=== PATIENT | male | born 1970 | race Caucasian/White ===

== ENCOUNTER 2017-10-31 08:52 | Emergency (ER) | payer BC ==
[~2017-10-31] VITALS: Ht 182.9 cm; Wt 122.5 kg
[~2017-10-31 08:52] MED LIST: AVAPRO; MECLIZINE 25 MG25 M1 PO; PHENERGAN 25 MG25 M1 PO; PRISTIQ50 MG
[2017-10-31] MEDS ORDERED: CLARITIN10 MG PO (09:01)
[2017-10-31] MEDS ORDERED: VIIBRYD10 MG PO (09:02)
[2017-10-31] MEDS ORDERED: AMBIEN 5 MG TABL5 M1 PO (09:07)
[2017-10-31] MEDS ORDERED: NORVASC10 MG PO (09:07)
[2017-10-31] MEDS ORDERED: WELLBUTRIN SR150 MG PO (09:07)
[2017-10-31 09:17] LABS: ABSOLUTE BASOPHILS 0.1 thou/uL (0.0-0.2); ABSOLUTE EOSINOPHILS 0.2 thou/uL (0.0-0.7); ABSOLUTE LYMPHOCYTES 2.1 thou/uL (0.8-5.3); ABSOLUTE MONOCYTES 0.8 thou/uL (0.0-1.2); ABSOLUTE NEUTROPHILS 3.9 thou/uL (1.6-8.1); BASOPHILS 1.3 %; EOSINOPHILS 2.6 %; HEMATOCRIT 39.9 % (42.0-52.0); HEMOGLOBIN 13.4 gm/dL (14.0-18.0); LYMPHOCYTES 29.6 %; MCH 27.4 pg (26.0-34.0); MCHC 33.5 g/dL (28.0-37.0); MCV 81.9 fL (80.0-100.0); MONOCYTES 11.1 %; MPV 7.4 fl. (7.2-11.1); NUCLEATED RBCS 0 /100WBC; PLATELET COUNT* 282 thou/uL (150-400); POLYS 55.4 %; RBC 4.87 mil/uL (4.50-6.00); RDW-CV 14.8 % (10.5-14.5)
[2017-10-31 09:26] LABS: ANION GAP 5 mmol/L (7-16); BUN 14 mg/dL (7-18); CALCIUM 8.3 mg/dL (8.5-10.1); CHLORIDE 105 mmol/L (98-107); CO2 30 mmol/L (21-32); CREATININE 0.9 mg/dL (0.6-1.3); GLUCOSE 82 mg/dL (70-99); POTASSIUM 3.5 mmol/L (3.5-5.1); SODIUM 140 mmol/L (136-145)
[2017-10-31 09:44] LABS: APTT 27.9 Seconds (25.0-31.3); PROTIME 10.1 Seconds (9.20-11.50)
[2017-10-31 09:46] LABS: ALBUMIN 3.7 g/dL (3.4-5.0); ALKALINE PHOSPHATASE 103 U/L (46-116); CK-MB MASS 2.4 ng/mL (<0.5-3.6); LIPASE 140 U/L (73-393); MAGNESIUM 2.1 mg/dL (1.8-2.4); NT-PRO BRAIN NAT PEPTIDE 18 pg/mL (<300); SGOT 17 U/L (15-37); SGPT 33 U/L (30-65); TOTAL BILIRUBIN 0.3 mg/dL (<0.1-1.0); TROPONIN-I LEVEL <0.06 ng/mL (<0.06)
[2017-10-31 10:08] VITALS: BP 127/74
--- NOTE | 2017-10-31 14:25 | EKG ---
[place] [address] ELECTROCARDIOGRAM REPORT Name: VIVIANA AGUIRRE Room: 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 CABRERA : 1970 Requested By: Alex Ruiz Order Number: [id number] MD: Sebastián Smith Measurements Intervals [place] Rate: 80 P: 16 CO: 142 QRS: 37 QRSD: 114 T: 9 QT: 386 QTc: 446 Interpretive Statements Sinus rhythm Borderline intraventricular conduction delay Compared to ECG 07/12/2012 10:00:10 No significant changes Electronically Signed On 10-31-2017 14:25:22 CDT by Sebastián Smith [email or web address] <ELECTRONICALLY SIGNED> By: Sebastián Smith MD, [facility] 10/31/17 1425 [id number] Sebastián Smith MD, FACC /EPI
== END 2017-10-31 10:10 | disposition home or self-care (01) ==
LOC: M.ERS 08:52
PROVIDERS: Emergency Medicine
DX: R07.89 Other chest pain (principal); I10 Essential (primary) hypertension; E78.00 Pure hypercholesterolemia, unspecified; F41.9 Anxiety disorder, unspecified

== ENCOUNTER → 2017-11-23 | Outpatient (CLI) | payer OTHER ==
[~2017-11-23] MED LIST changes: +AMBIEN 5 MG TABL5 M1 PO; +CLARITIN10 MG PO; +NORVASC10 MG PO; +VIIBRYD10 MG PO; +WELLBUTRIN SR150 MG PO
== END ==
LOC: M.CT 14:00
DX: Z13.6 Encounter for screening for cardiovascular disorders (principal)

== ENCOUNTER → 2017-11-29 | Outpatient (CLI) | payer BC ==
--- NOTE | 2017-12-06 20:19 | SLEEP ---
[address] [address] SLEEP STUDY REPORT Name: VIVIANA AGUIRRE Room: [facility]#: [id number] Admission: 11/29/17 Attend Phys: Tamar Smith Discharge: Date of : 68 Report #: [id number] THIS REPORT FOR: //name// CC: Tamar Acevedo This study has been reviewed in its entirety by a board certified sleep specialist DATE OF SERVICE: 11/29/2017 REFERRING PHYSICIAN: Dr. Tamar Matthews. The patient is 47 years old who weighs 272 pounds and is 72 inches tall. The patient underwent home sleep study performed at [facility]. Total recording time was 481 minutes. During the night study, the patient had no central apneas, 1 obstructive apnea, and no mixed apneas and there were 60 hypopneas. The patient's apnea hypopnea index was 7.6 per hour. No supine sleep was recorded. Review of nocturnal oximetry study revealed an average oxygen saturation of 92% with lows of 80%. 48 minutes were spent at an oxygen saturation of less than 90%. EKG monitoring revealed mean heart rate of 85 beats per minute. IMPRESSION: 1. Mild sleep apnea-hypopnea syndrome at an apnea hypopnea index of 7.6 per hour. 2. Nocturnal hypoxia secondary to obstructive sleep apnea. RECOMMENDATIONS: 1. The patient has mild sleep apnea. I would recommend weight loss as the initial form of treatment. 2. If the patient remains clinically symptomatic despite weight loss, then consider treatment options such as use of an oral appliance as recommended by the dentist versus trial of CPAP titration. 3. Avoid STATION EXAMINER depressants. 4. Cautioned regarding driving until symptoms of sleep apnea resolve with the above recommendations. <ELECTRONICALLY SIGNED> By: Ayden Perales MD 12/06/17 2019 [id number] [id number] Manjula Perales MD /pipe
== END ==
LOC: M.SLEEPLAB 11-28 09:00
DX: G47.33 Obstructive sleep apnea (adult) (pediatric) (principal); G47.00 Insomnia, unspecified; R07.9 Chest pain, unspecified; R06.83 Snoring; I10 Essential (primary) hypertension; E78.5 Hyperlipidemia, unspecified; Z86.69 Personal history of other diseases of the nervous system and sense organs

== ENCOUNTER → 2017-12-14 | Outpatient (CLI) | payer BC ==
--- NOTE | 2017-12-14 14:32 | EXE ---
[place] [address] STRESS ECHOCARDIOGRAM Name: VIVIANA AGUIRRE Room: [facility]#: [id number] Admission: 12/14/17 Attend Phys: Adebayo Tubbs, Discharge: Date of : 68 Date of Service: 12/14/17 1432 Report #: [id number] THIS REPORT FOR: //name// APPROVED REPORT Study performed: 12/14/2017 13:25:55 Exam: Stress Echocardiogram Indication: Chest pain Patient Location: Out-Patient Stress Nurse: Yamel Freedman RN Supervising Physician: Arash Mckinney MD Status: routine Ht: 6 ft 0 in HR: 83 bpm BP: 151/80 mmHg Rhythm: NSR Medical History Cardiac Risk Factors: HTN, Hyperlipidemia Procedure The patient underwent an Exercise Stress Test using the Panda Protocol. Blood pressure, heart rate, and EKG were monitored. An Echocardiogram was performed by hvac field service technician in four stages in quad fashion. At peak stress, four selected images were obtained and placed side by side with resting images for comparison. Stress Test Details Stress Test: Exercise stress testing was performed using a Panda protocol. HR Resting HR: 83 bpm Max Heart Rate (APMHR): 172 bpm Max HR Achieved: 154 bpm Target HR (85% APMHR): 146 bpm % of APMHR: 89 Recovery HR: 99 bpm HR response to stress: Normal HR response to stress BP Resting BP: 151/80 mmHg Max BP: 238/62 mmHg Recovery BP: 160/85 mmHg ECG Stress ECG: no ischemic [place] [address] STRESS ECHOCARDIOGRAM Name: VIVIANA AGUIRRE Room: [facility]#: [id number] Admission: 12/14/17 Attend Phys: Adebayo Tubbs, Discharge: Date of : 68 Date of Service: 12/14/17 1432 Report #: [id number] Clinical Reason for Termination: Maximal effort, Dyspnea Exercise duration: 8 min 20 sec Highest Stage Achieved: Stage 3: 3.4 mph at 14% grade. Exercise capacity: 10.16 METs Pre-Stress Echo The resting Echocardiogram showed normal left ventricular contractility with an estimated Ejection Fraction of about 60-65%. Normal wall motion in all segments on baseline images. Post-Stress Echo The stress Echocardiogram showed normal left ventricular contractility with an estimated Ejection Fraction of about >70%. Normal augmentation of wall motion in all segments on post stress images. Conclusion Clinical Response: Non-ischemic Exercise Capacity: Average Stress ECG Response: Non-ischemic Stress Echo Images: Non-ischemic Other Information Study Quality: Good <ELECTRONICALLY SIGNED> By: Arash Mckinney MD, [facility] 08/1431 143 31 Arash Mckinney MD, FACC /INF
== END ==
LOC: M.CRD 12:40
DX: R07.89 Other chest pain (principal)